=== PATIENT | female | born 1990 | race Caucasian/White ===

== ENCOUNTER 2017-04-10 09:55 | Outpatient (CLI) | payer MEDICAID ==
[~2017-04-10] VITALS: Ht 190.5 cm; Wt 77.3 kg
[~2017-04-10 09:55] MED LIST: LANTUS100 U/ML SC; NEURONTIN400 MG/CAP PO; NORCO 325 MG-51 TAB PO; NOVOLOG 100U100 U/M1 SQ
[2017-04-10 10:00] VITALS: BP 124/86; PULSE 105; TEMP 98.1
[2017-04-10] MEDS ORDERED: PRENATAL MVI (10:43)
== END 2017-04-10 10:10 | disposition home or self-care (01) ==
LOC: LDRO 09:55
DX: O62.2 Other uterine inertia (principal); Z3A.32 32 weeks gestation of pregnancy

== ENCOUNTER 2017-04-29 11:53 | Outpatient (CLI) | payer OTHER ==
[~2017-04-29] VITALS: Ht 165.1 cm; Wt 79.1 kg
[~2017-04-29 11:53] MED LIST changes: +PRENATAL MVI
[2017-04-29 12:11] VITALS: BP 122/75; PULSE 89; TEMP 97.7
== END 2017-04-29 12:55 | disposition home or self-care (01) ==
LOC: LDRO 11:53 → LDR 12:00 → LDRO 12:55 → LDR 12:55
DX: O62.2 Other uterine inertia (principal); O99.613 Diseases of the digestive system complicating pregnancy, third trimester; R19.7 Diarrhea, unspecified; Z3A.34 34 weeks gestation of pregnancy
CPT/HCPCS: OP

== ENCOUNTER 2017-05-13 08:05 | Outpatient (CLI) | payer MEDICAID ==
[~2017-05-13] VITALS: Ht 165.1 cm; Wt 80.0 kg
[2017-05-13 08:34] VITALS: BP 127/91; PULSE 111; TEMP 98.1
[2017-05-13 09:00] VITALS: BP 129/80; PULSE 95; TEMP 98.1
[2017-05-13 09:33] VITALS: BP 131/98; PULSE 94
== END 2017-05-13 10:55 | disposition home or self-care (01) ==
LOC: LDRO 08:05 → LDR 08:30 → LDRO 10:55
DX: O36.8130 Decreased fetal movements, third trimester, not applicable or unspecified (principal); O99.89 Other specified diseases and conditions complicating pregnancy, childbirth and the puerperium; M79.89 Other specified soft tissue disorders; Z3A.36 36 weeks gestation of pregnancy
CPT/HCPCS: OP